=== PATIENT | female | born 1985 | race Caucasian/White ===

== ENCOUNTER 2023-06-26 14:49 | Outpatient (CLI) | payer BC, SELFPAY ==
--- NOTE | 2023-06-26 15:15 | MR_ITS ---
WS: [id number] MRI BRAIN WITH AND WITHOUT CONTRAST HISTORY: G40.909 - Epilepsy, unspecified, not intractable, without... COMPARISON: None available. TECHNIQUE: Multiplanar imaging performed through the brain with MultiHance 20 ml's IV. No acute infarcts are seen. Quesada-white matter differentiation is well preserved. Normal hippocampal f ormations. No atrophy or sclerosis. There is a single susceptibility focus in the central RIGHT frontal lobe. There is no areas of abnorm al enhancement at this location. No underlying mass. Ventricles and extra-axial spaces are normal. Cavum septum pellucida et vergae. Clivus and pituitary gland are normal. Visualized posterior fossa and brainstem are also normal. Postcontrast images are negative for masses or vascular malformations. Dural venous sinuses are normal. Paranasal sinuses: Small air-fluid level in the LEFT maxillary sinus. Mucous retention cyst in the RI GHT maxillary sinus. Mastoid air cells: Normal. Calvarium and scalp: Normal. MR/MR head wo/w con [id number] IMPRESSION: 1. No mass or prior infarct. 2. There is a single susceptibility focus consistent with hemosiderin in the c entral RIGHT frontal lobe. No associated mass or abnormal enhancement. 3. No volume loss. 4. Normal hippocampal formations.
[2023-06-26] MEDS: gadobenate dimeglumine 20 mL vial IV (16:09)
== END 2023-06-26 14:50 | disposition home or self-care (01) ==
LOC: RAD 14:49
PROVIDERS: Family Provider Family Medicine; PCP Family Medicine; Visit Provider Psychiatry & Neurology Neurology
DX: G40.909 Epilepsy, unspecified, not intractable, without status epilepticus (principal)
CPT/HCPCS: 70553; A9577

== ENCOUNTER 2023-08-09 07:10 | Outpatient (CLI) | payer BC, SELFPAY ==
[2023-08-09 08:22] LABS: 25 Hydroxy Vitamin D 20 ng/mL (30-100); Magnesium 2.1 mg/dL (1.7-2.3); Thyroid Stimulating Hormone 1.48 uIU/mL (0.27-4.20); Vitamin B12 1047 pg/mL (232-1245)
[2023-08-09 09:02] LABS: Free T4 Free Thyroxine 1.32 ng/dL (0.82-1.77); T3 Free 3.6 PG/ML (2.0-4.4)
[2023-08-12 03:29] LABS: Methylmalonic Acid 157 nmol/L (55-335)
== END 2023-08-09 07:11 | disposition home or self-care (01) ==
LOC: LAB 07:12
PROVIDERS: Family Provider Family Medicine; PCP Nurse Practitioner Family; Visit Provider Psychiatry & Neurology Neurology
DX: G40.909 Epilepsy, unspecified, not intractable, without status epilepticus (principal)
CPT/HCPCS: 36415; 82306; 82607; 82746; 83735; 83921; 84439; 84443; 84481

== ENCOUNTER 2023-08-16 10:17 | Emergency (ER) | payer BC, SELFPAY ==
[2023-08-16 10:39] VITALS: BP 129/84; PULSE 94; TEMP 36.7; O2SAT 100; BMI 46.0
--- NOTE | 2023-08-16 10:52 | ED_ITS ---
HPI - Recheck/Abnormal Lab/Rx General: Chief Complaint: Recheck/Abnormal Lab/Rx Stated Complaint: Blood drawn Time Seen by Provider: 08/16/23 10:30 History of Present Illness: Patient comes in with no concerns. States that she recently saw her neurologist who increased her Keppra to thousand twice daily. States that they wanted her Keppra level rechecked today. States that she lives about an hour away in a center down here today to check it forgetting that it was a holiday. States she called them and they instructed her to come to the emergency department for Keppra level. She states she feels fine. She denies any symptoms including no fever, cough, congestion, abdominal pain, chest pain, or other issues. Review of Systems Const: Denies: fever(s) or body aches Eyes: Denies: change in vision or blurry vision ENMT: Denies: throat pain or odynophagia Card: Denies: chest pain or palpitations Resp: Denies: dyspnea or productive cough GI: Reports: hematochezia; Denies: abdominal pain, nausea or vomiting : Denies: flank pain Musc: Denies: neck pain or back pain Skin/Breast: Denies: rash or pruritus Neuro: Denies: headache(s) or numbness in extremities Psych: Denies: anxiety or change in appetite Endo: Denies: polyuria or excessive sweating Physical Exam Const: COMMON NORMALS: no acute distress, patient oriented x3, healthy appearing and alert HENMT: COMMON NORMALS: normocephalic and atraumatic HEAD & SCALP: normocephalic and atraumatic Eye: COMMON NORMALS: EOMs intact bilaterally Neck/C-Spine: COMMON NORMALS: full ROM and supple Resp: COMMON NORMALS: normal respiratory effort and No retractions Extremity: COMMON NORMALS: normal to inspection and full ROM Neuro: COMMON NORMALS: patient oriented x3 SENSORIUM/ORIENTATION: Yes alert Psych: COMMON NORMALS: mental status grossly normal and cooperative Course Vital Signs: Vital signs: Vital Signs Temperature 98.1 F 08/16/23 10:39 Pulse Rate 94 08/16/23 10:39 Blood Pressure 129/84 08/16/23 10:39 Pulse Oximetry 100 08/16/23 10:39 Oxygen Delivery Me thod Room Air 08/16/23 10:39 MDM - Recheck/Abnormal Lab/Rx Medical Decision Making Patient comes in with no concerns. States that she recently saw her neurologist who increased her Keppra to thousand twice daily. States that they wanted her Keppra level rechecked today. States that she lives about an hour away in a center down here today to check it forgetting that it was a holiday. States she called them and they instructed her to come to the emergency department for Keppra level. She states she feels fine. She denies any symptoms including no fever, cough, congestion, abdominal pain, chest pain, or other issues. Physical exam is unremarkable. Will check a Keppra level. The patient states she does not need to wait for the results and will follow-up with her doctor. Will discharge with precautions to return for any concerns. No radiology studies performed this visit Discharge Plan Discharge Patient Disposition: Home Clinical Impression: Encounter for medical screening examination Condition: Stable Prescriptions: No Action Wegovy 0.5 mg/0.5 mL pen injector 0.5 mg SUBCUT Q7D Wegovy 1 mg/0.5 mL pen injector 1 mg SUBCUT Q7D Wegovy 1.7 mg/0.75 mL pen injector 1.7 mg SUBCUT Q7D amlodipine 10 mg tablet 10 mg PO DAILY lisinopril 20 mg tablet 20 mg PO DAILY lisinopril 20 mg tablet 20 mg PO BID levetiracetam 1,000 mg tablet 1,000 mg PO BID Qty: 60 5RF cholecalciferol (vitamin D3) 1,250 mcg (50,000 unit) capsule 50,000 unit PO ONCE Qty: 14 5RF Rx Instructions: take 1 a week Discharge Orders: Discharge ED (Routine); Ordered 08/16/23 Ordered By: Curt La Referrals: Karoline Lawton APN [Primary Care Provider] - Will Champagne MD [Family Provider] - Coding Level of Care Code ED Health Management Consultant for Mario Alberto Ortega
[2023-08-16 11:23] VITALS: BP 126/89; PULSE 95; RESP 16; TEMP 36.7; O2SAT 100
[2023-08-20 11:49] LABS: Levetiracetam Immunoassy 13.1 mcg/mL (6.0-46.0)
== END 2023-08-16 11:18 | disposition home or self-care (01) ==
PROVIDERS: Emergency Provider Emergency Medicine; PCP Nurse Practitioner Family
DX: R79.9 Abnormal finding of blood chemistry, unspecified (principal); Z79.899 Other long term (current) drug therapy
CPT/HCPCS: 36415; 80177; 99283

== ENCOUNTER 2023-09-04 11:25 | Outpatient (CLI) | payer BC, SELFPAY ==
--- NOTE | 2023-09-04 11:45 | MR_ITS ---
WS: [id number] MRA HEAD TECHNIQUE: Axial 3-D TOF images obtained with axial images and axial, sagittal, and coronal 2-D refor matted images. CLINICAL INFORMATION: R56.9 - Unspecified convulsions COMPARISON: MRI 06/26/2023 FINDINGS: Distal vertebral arteries are patent. Basilar artery is patent. Normal vascularity to the APPLICATION DEVELOPMENT INTERN territo ry bilaterally. Near persistent LEFT APPLICATION DEVELOPMENT INTERN with small LEFT P1 segment. Normal vascularity to the APPLICATION DEVELOPMENT INTERN territory bilaterally. Both ICAs are patent at the skull base. Normal vascularity to the EDGAR and MCA territories bilaterally . No evidence of proximal flow-limiting stenosis or aneurysm. MR/MR angio head wo con [id number] IMPRESSION: 1. No evidence of proximal flow-limiting stenosis or aneurysm. 2. Normal variant near persistent LEFT APPLICATION DEVELOPMENT INTERN with small LEFT P1 segment. 3. No other suspicious findings.
== END 2023-09-04 11:26 | disposition home or self-care (01) ==
PROVIDERS: Family Provider Family Medicine; PCP Nurse Practitioner Family; Visit Provider Psychiatry & Neurology Neurology
DX: R56.9 Unspecified convulsions (principal)
CPT/HCPCS: 70544

== ENCOUNTER 2023-12-20 11:23 | Outpatient (CLI) | payer BC, SELFPAY ==
[2023-12-20 12:25] LABS: Valproic Acid Level 17.2 ug/mL (50-100)
== END 2023-12-20 11:24 | disposition home or self-care (01) ==
PROVIDERS: Family Provider Family Medicine; PCP Nurse Practitioner Family; Visit Provider Psychiatry & Neurology Neurology
DX: R56.9 Unspecified convulsions (principal)
CPT/HCPCS: 36415; 80164

== ENCOUNTER 2023-12-27 11:00 | Outpatient (CLI) | payer BC, SELFPAY ==
[2023-12-27 11:53] LABS: Valproic Acid Level 74.2 ug/mL (50-100)
== END 2023-12-27 11:01 | disposition home or self-care (01) ==
LOC: LAB 11:02
PROVIDERS: Family Provider Family Medicine; PCP Nurse Practitioner Family; Visit Provider Psychiatry & Neurology Neurology
DX: R56.9 Unspecified convulsions (principal)
CPT/HCPCS: 80164

== ENCOUNTER 2024-07-23 13:46 | Outpatient (CLI) | payer BC, SELFPAY ==
[2024-07-23 14:42] LABS: Valproic Acid Level 43.7 ug/mL (50-100)
[2024-07-24 15:55] LABS: Levetiracetam Immunoassy 15.6 mcg/mL (6.0-46.0)
== END 2024-07-23 13:47 | disposition home or self-care (01) ==
PROVIDERS: PCP Nurse Practitioner Family; Visit Provider Psychiatry & Neurology Neurology
DX: R56.9 Unspecified convulsions (principal)
CPT/HCPCS: 36415; 80164; 80177